=== PATIENT | female | born 1955 | race Caucasian/White ===

== ENCOUNTER 2019-09-09 09:10 | Inpatient (IN) ==
[2019-09-09] MEDS ORDERED: DiphenhydrAMINE HCL 50 MG/ML VIAL IV STA (09:46)
[2019-09-09] MEDS ORDERED: ONDANSETRON INJ 2 MG/ML 2 ML VIAL IV STA (09:46)
[2019-09-09] MEDS ORDERED: SODIUM CHLORIDE 0.9% 1000ML 1,000 ML IV SCH (10:00)
--- NOTE | 2019-09-09 10:16 | XRay Report ---
XR chest 1V portable CLINICAL HISTORY: weakness COMPARISON STUDY: No previous studies for comparison. FINDINGS: The cardiac and mediastinal contours are normal. There is no evidence of focal pulmonary co nsolidation. There is no evidence of failure. No pleural effusions are visualized.[Incidental note is made of a peritendinous calcifications in the left shoulder region, likely secondary to calcific ten dinopathy IMPRESSION: No active disease in the chest. ACT 112: Negative or not required by law. Electronically signed by: Matthew Garcia M.D. 09/09/2019 10:14 AM
[2019-09-09 10:23] LABS: Basophils # (auto) 0.04 K/uL (0-0.2); Basophils % (auto) 0.4 %; Eosinophils # (auto) 0.44 K/uL (0-0.5); Eosinophils % (auto) 4.7 %; Hematocrit (blood only) 41.7 % (37-47); Hemoglobin 14.6 g/dL (12.0-16.0); Immature Granulocytes # (auto) 0.02 K/uL (0.00-0.02); Immature Granulocytes % (auto) 0.2 %; Lymphocytes # (auto) 1.97 K/uL (1.2-3.4); Lymphocytes % (auto) 20.8 %; Mean Corpuscular Volume 88.5 fL (80-100); Mean Platelet Volume 10.6 fL (7.4-10.4); Monocytes # (auto) 0.46 K/uL (0.11-0.59); Monocytes % (auto) 4.9 %; Neutrophils # (auto) 6.53 K/uL (1.4-6.5); Platelet Count 292 K/uL (130-400); RDW Coefficient of Variation 13.1 % (11.5-14.5); RDW Standard Deviation 42.9 fL (36.4-46.3); Red Blood Count 4.71 M/uL (4.2-5.4); White Blood Count 9.46 K/uL (4.8-10.8)
[2019-09-09 10:41] LABS: Alanine Aminotransferase 23 U/L (12-78); Albumin Level 3.7 gm/dl (3.4-5.0); Aspartate Aminotransferase 13 U/L (15-37); BUN Creatinine Ratio 17.8 (10-20); Blood Urea Nitrogen 15 mg/dl (7-18); Calcium 9.1 mg/dl (8.5-10.1); Carbon Dioxide 29 mmol/L (21-32); Chloride 107 mmol/L (98-107); Creatinine Clr Calc Pharmacy 57.7 ml/min; Est GFR (African American) 84.5; Est GFR (Non-African American) 72.9; Glucose 131 mg/dl (70-99); Magnesium 1.8 mg/dl (1.8-2.4); Potassium 3.9 mmol/L (3.5-5.1); Sodium 139 mmol/L (136-145)
[2019-09-09 10:52] LABS: Alkaline Phosphatase 36 U/L (45-117); Bilirubin,Total 0.3 mg/dl (0.2-1); Globulin 3.7 gm/dl (2.5-4.0); Total Protein 7.4 gm/dl (6.4-8.2); Troponin I < 0.015 ng/ml (0-0.045)
[2019-09-09] MEDS ORDERED: GADOBUTROL 65ML VIAL IV PRN (11:39)
--- NOTE | 2019-09-09 11:54 | Magnetic Resonance Report ---
MRI OF THE BRAIN WITHOUT AND WITH IV CONTRAST CLINICAL HISTORY: Possible ms flare, dizzy, weak, off balance COMPARISON STUDY: No previous studies for comparison. TECHNIQUE: MRI of the brain was performed from the vertex to the skull base utilizing various T1 and T2 weighted sequences. Following the IV administration of 6.5 mL of Gadavist contrast, additional enh anced images were obtained. FINDINGS: Sagittal T1, axial diffusion, proton density and T2 weighted axial, coronal FLAIR, and pre and post a xial T1-weighted images were acquired. These were supplemented with post gadolinium coronal T1 weight ed images. No intra or extra-axial mass lesions are visualized. Axial diffusion-weighted images reveal no evidence of acute or subacute infarction. There is no evidence of ventricular dilatation. Proton density T2-weighted and FLAIR images reveal multiple foci of abnormal increased T2 signal with in the white matter. A few small periventricular lacunar infarcts are also visualized. There is also a pontine lacunar infarct. Diagnostic considerations include small vessel ischemic disease versus a d emyelinating process. There are no abnormal flow voids. There is no evidence of pathologic enhancement. IMPRESSION: 1. No evidence of intracranial mass 2. No evidence of acute or subacute infarction 3. Scattered lacunar infarcts 4. Moderate foci of increased T2 signal within the white matter. Diagnostic considerations include sm all vessel ischemic disease versus a demyelinating process 5. No evidence of pathologic enhancement to indicate an active plaque. ACT 112: Negative or not required by law. Electronically signed by: Matthew Garcia M.D. 09/09/2019 11:53 AM
--- NOTE | 2019-09-09 13:07 | Electrocardiogram Report ---
Test Reason : Blood Pressure : / mmHG Vent. Rate : 067 BPM Atrial Rate : 067 BPM P-R Int : 162 ms QRS Dur : 082 ms QT Int : 442 ms P-R-T Axes : 073 053 049 degrees QTc Int : 467 ms Normal sinus rhythm Low voltage QRS Poor R wave progression, consider anterior NV vs. lead placement vs. LVH Borderline ECG No previous ECGs available Confirmed by Ulises Cuellar ([id number]) on 09/09/2019 1:06:27 PM Referred By: REFERRED SELF Confirmed By:Andrea Cuellar
[2019-09-09 13:10] LABS: Appearance Urine Clear (Clear); Bacteria Urine Automated 1+ (Negative); Bilirubin Urine Negative (Negative); Blood Urine Trace (Negative); Color Urine Yellow; Epithelial Cell Urine Auto >30 /lpf (0-5); Glucose Urine UA Negative (Negative); Ketones Urine Negative (Negative); Leukocyte Esterase Urine Negative (Negative); Nitrite Urine Negative (Negative); Protein Urine Negative (Negative); RBC Urine Automated 0-4 /hpf (0-4); Specific Gravity Urine 1.011 (1.000-1.030); Urobilinogen Urine Negative (Negative)
[2019-09-09] MEDS ORDERED: OPTIRAY 320 125ml IV PRN (15:14)
--- NOTE | 2019-09-09 15:22 | History & Physical Report ---
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 Diagnostic considerations include small vessel ischemic disease versus a demyelinating process -ED provider discussed case with neurology (Dr. Ioana Rashid) who recommends admission for further work-up including head and neck CTA and echo -? Due to vertigo -Continue home aspirin 81 mg for now, further antiplatelet regimen as per neurology if indicated -Lipid panel and Hgb A1c with morning labs -Neurochecks -PT/OT eval's (2) HTN (hypertension): -No indication for permissive hypertension given no acute infarction noted on MRI -Continue home dose of valsartan/HCTZ (3) Hypercholesteremia: -Continue statin (4) GERD (gastroesophageal reflux disease): -Continue PPI (5) DVT prophylaxis: -SQ Lovenox History of Present Illness Chief Complaint: Dizziness Primary Care Provider: LEYDI Douglas 63 year old female who presents to the ED with dizziness. Patient reports she woke up this morning to let her dog out and when she got out of bed, she had a feeling of lightheadedness and dizziness. She reports that when she walking she was leaning to left. She then went back to bed and when she woke up, the dizziness and lightheadedness was much worse. She had associated vomiting and diarrhea. She also felt very flushed. Reports symptoms were worse when she turned her head. She denies hematemesis and coffee-ground emesis. No prior bleeding per rectum or dark tarry stools. Symptoms lasted for about 1 hour and then resolved on their own. Patient then presented to the ED for further evaluation. She denies unilateral weakness, numbness, tingling. No facial droop, slurred speech, difficulty speaking or understanding. Denies headache and blurred vision. Has some associated shortness of breath but denies any chest pain. No syncopal event. Denies abdominal pain. No other recent illness, fevers, chills. Denies any urinary symptoms. In the ED, brain MRI was obtained showing No evidence of acute or subacute infarction, Scattered lacunar infarcts, and Moderate foci of increased T2 signal within the white matter. Diagnostic considerations include small vessel ischemic disease versus a demyelinating process. Labs are unremarkable. Patient has remained hemodynamically stable. ED provider consulted with neurology who recommended admission for further work-up. Allergies Allergy/AdvReac Type Severity Reaction Status Date / Time No Known Allergies Allergy Unverified 09/09/19 11:38 Home Medications Home Medications Medication Instructions Recorded Confirmed Type aspirin 81 mg PO HS 09/09/19 09/09/19 History cholecalciferol (vitamin D3) 1,000 unit PO QAM 09/09/19 09/09/19 History [Vitamin D3] conjugated estrogens [Premarin] 1.25 mg PO QAM 09/09/19 09/09/19 History cyanocobalamin (vitamin B-12) 1,000 mcg PO QAM 09/09/19 09/09/19 History [Vitamin B-12] fenofibrate nanocrystallized 145 mg PO QAM 09/09/19 09/09/19 History hyoscyamine sulfate [Levbid] 0.375 mg PO QAM 09/09/19 09/09/19 History omeprazole 40 mg PO QAM 09/09/19 09/09/19 History simvastatin 40 mg PO HS 09/09/19 09/09/19 History valsartan-hydrochlorothiazide 1 tab PO QAM 09/09/19 09/09/19 History Past Med/Surg History Medical History GERD (gastroesophageal reflux disease) HTN (hypertension) Hypercholesteremia Surgical History H/O lumpectomy History of hysterectomy Hx of cholecystectomy Family History Mother Cerebral aneurysm Stroke Social History Preferred Language: [place] Communication Ability: Effective 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 Beliefs That Will Affect Care: None marital status: Current Living Situation: Alone current occupational status: retired Other Information That Helps Us Care for You: No Feels Safe at Home: Yes Safety Concerns: Feels Safe At This Time Smoking Status: Current every day smoker Tobacco Type: cigarettes ; Cigarettes Per Day: 10 ; Do You Dip or Chew Tobacco: No ; Second Hand Exposure: No ; Tobacco Cessation Education Requested by Patient: No Hx Alcohol Use: Yes Alcohol type: beer and wine Hx Substance Use: No Review of Systems Review of Systems: ROS per HPI, all other systems reviewed and negative Physical Exam Constitutional: WD/WN, vitals as above Eyes: PERRL, conjunctivae normal, anicteric sclerae ENMT: external ear and nose normal, oropharynx normal Respiratory: normal respiratory effort, lungs clear to auscultation Cardiovascular: Rate/Rhythm: regular rate and regular rhythm Vessels: normal peripheral pulses Extremities: no edema Gastrointestinal (Abdomen): normal bowel sounds, soft, nontender, no hepatosplenomegaly Musculoskeletal: no cyanosis or clubbing, extremities motor strength 5/5 Skin: no rashes, warm and dry Neurologic: PERRL, EOMI, accommodation nl, no face palsy, no dysarthria moves all extremities and awake; no focal motor deficits Motor/Sensory: no pronator drift Cranial Nerves: tongue midline Coordination: normal [id number] test and normal nglq-bv-cucc test Psychiatric: A+Ox3, euthymic affect Results & Data Vital Signs (Past 12 Hours) Vital Signs Temp Pulse Pulse Resp BP BP Pulse Ox 09/09/19 14:44 78 17 125/69 97 09/09/19 13:52 69 18 123/70 96 09/09/19 13:27 88 17 129/65 96 09/09/19 11:50 78 16 136/83 96 09/09/19 09:19 36.4 C L 70 16 128/79 98 Laboratory Results Short CBC 09/09/19 Range/Units 10:00 WBC 9.46 (4.8-10.8) K/uL Hgb 14.6 (12.0-16.0) g/dL Hct 41.7 (37-47) % Plt Count 292 (130-400) K/uL BMP 09/09/19 10:00 Sodium 139 Potassium 3.9 Chloride 107 Carbon Dioxide 29 BUN 15 Creatinine 0.84 Glucose 131 H Calcium 9.1 Cardiac Enzymes 09/09/19 Range/Units 10:00 Troponin I < 0.015 (0-0.045) ng/ml Liver Function 09/09/19 Range/Units 10:00 Total Bilirubin 0.3 (0.2-1) mg/dl AST 13 L (15-37) U/L ALT 23 (12-78) U/L Alkaline Phosphatase 36 L (45-117) U/L Albumin 3.7 (3.4-5.0) gm/dl Urine 09/09/19 Range/Units 12:25 Urine Color Yellow Urine Appearance Clear (Clear) Urine pH 7.0 (4.5-7.5) Ur Specific [place] 1.011 (1.000-1.030) Urine Protein Negative (Negative) Urine Glucose (UA) Negative (Negative) Diagnostic Findings BRAIN MRI IMPRESSION: 1. No evidence of intracranial mass 2. No evidence of acute or subacute infarction 3. Scattered lacunar infarcts 4. Moderate foci of increased T2 signal within the white matter. Diagnostic considerations include small vessel ischemic disease versus a demyelinating process 5. No evidence of pathologic enhancement to indicate an active plaque. CXR IMPRESSION: No active disease in the chest. Code Status & VTE Plan VTE Prophylaxis Plan VTE Prophylaxis will be ordered: Yes Supervising Physician Co-Signing Physician Notes Attending addendum: The patient was seen and examined in the telemetry unit She was admitted with possible strokelike symptoms including leaning to the left while ambulating associated with profound dizziness She has had an attack of TIA about 10 years ago and she was told that she might have dormant MS Condition completely resolved during my examination She did not have any visual symptoms, any dysarthria or problem with swallowing, any numbness and/or tingling involving any of the extremities On examination Hemodynamically stable Chest-clear to auscultate bilaterally Heart-S1-S2, no murmur Abdomen-soft, nontender, no organomegaly, bowel sound present Extremities-negative for any edema TAX REPRESENTATIVE-alert, awake and oriented x3. No focal sensory and motor deficit appreciated Admission labs, EKG and imaging studies reviewed MRI showed old tiny infarcts and possible diminishing disease Multiple sclerosis has to be ruled out Neurology consulted Agree with assessment and plan as outlined above by Marisol Eason
[2019-09-09] MEDS ORDERED: PHARMACIST DISCHARGE MED REC CONSULT PRN (15:43)
[2019-09-09] MEDS ORDERED: ACETAMINOPHEN 325 MG TAB PO PRN (15:43)
--- NOTE | 2019-09-09 15:44 | CT Scan Report ---
CT ANGIOGRAM OF THE BRAIN; CT ANGIOGRAM OF THE NECK CLINICAL HISTORY: Strokelike symptoms. Dizziness. Nausea and vomiting. COMPARISON STUDY: MRI of the brain dated 09/09/2019. TECHNIQUE: Following the IV administration of 119 of Optiray 320, CT angiogram of the head and neck w as performed from the aortic arch to the vertex. Images are reviewed in the axial, sagittal, and isabel nal planes. 3-D MIPS images are created and assessed. IV contrast was administered without complicati on. All measurements were calculated based on NASCET criteria. A dose lowering technique was utilize d adhering to the principles of ALARA. The examination is modestly degraded by motion artifact. CT DOSE: 846.38 mGycm FINDINGS: Brain parenchyma: The brain parenchyma is normal in appearance. There is no hemorrhage, mass effect, or evidence of acute territorial ischemia by CT criteria. There is no evidence of enhancing mass lesi on on the angiogram phase images. The ventricles, sulci, and cisterns are normal in configuration. Gr ay-white matter differentiation is preserved. No extra-axial fluid collection is seen. Thoracic aorta: There is mild atherosclerotic calcification of the thoracic aorta. Visualized portion s of the thoracic aorta are normal in caliber. The aortic arch demonstrates standard 3-vessel anatomy . Right carotid arterial system: The right common carotid artery is widely patent, as are the right int ernal and external carotid arteries. Left carotid arterial system: The left common carotid artery is widely patent, as are the left industrial engineering intern al and external carotid arteries. Calcified plaque is noted in the carotid bulb. Vertebral arteries: The vertebral arteries are widely patent and codominant. Subclavian arteries: Widely patent bilaterally. Intracranial vasculature: There is calcification of the cavernous carotid arteries. The internal muniz tid arteries are patent at the skull base, as are the anterior and middle cerebral arteries bilateral ly. The vertebrobasilar system and posterior cerebral arteries are widely patent. The vertebral arter ies are codominant. There is no aneurysm, high-grade stenosis, or focal vessel cut off seen throughou t the intracranial circulation. Jugular veins: Patent bilaterally. Dural sinuses: Patent. Lung apices: Hematemesis change is noted. Partially visualized upper lobe lung parenchyma is otherwis e clear. Soft tissues: The visualized pharyngeal soft tissues are normal in appearance noting angiographic pha se technique. The oropharyngeal airway appears widely patent. The salivary and thyroid glands are nor mal in appearance. No cervical lymphadenopathy is seen. Skeletal structures: The skeletal structures are osteopenic. The calvarium appears intact. The cervic al spine is maintained noting mild spondylosis. No lytic or blastic lesion is seen. Orbits: The bony orbits are intact. Orbital contents are normal in appearance. Sinuses and mastoids: There is mild mucosal thickening within the ethmoid sinuses. Secretions are not ed in the right sphenoid sinus. The remaining paranasal sinuses are clear. The mastoid air cells are well pneumatized. IMPRESSION: 1. There is no hemorrhage, mass effect, or evidence of acute territorial ischemia by CT criteria noti ng angiographic phase technique. 2. Unremarkable CT angiogram of the brain. 3. Unremarkable CT angiogram of the neck. 4. Emphysema. ACT 112: Negative or not required by law. Electronically signed by: Ronen Bobby M.D. 09/09/2019 3:42 PM
[2019-09-09] MEDS ORDERED: ENOXAPARIN INJ 40 MG/0.4 ML SYR SQ SCH (18:00)
--- NOTE | 2019-09-09 18:05 | Emergency Department Note ---
Entered by Giovana Arndt acting as a scribe for History of Present Illness General Chief complaint: Vomiting Stated complaint: DIZZY,SWEATS,SICK,VOMITING Time Seen by Provider: 09/09/19 09:27 Source: patient History of Present Illness Onset (ago): hour(s) 2 Location: abdomen Pain Consistency: + other (episode) Maximum Pain Intensity: 0 Quality: + other (vomiting) Associated symptoms: + denies other symptoms (hematochezia, hematemesis), + zachariah sea/vomiting and + other (dizzy, diarrhea, burning hot) The patient is a 63 year old female who presents to the Emergency Room with complaints of an episode of vomiting starting 2 hours ago. The patient states that she got up this morning to let the dogs out 2 hours ago. She states that she noticed that she was dizzy and felt like she was leaning to the left. She reports that she had to hold onto the smith to prevent herself from falling over. She states that she tried to go back to bed after letting them out, but once she got to the bedroom, she had a burning hot feeling come over her. She states that she couldnt catch her breath and then she vomited. She reports that about the same time she felt like she had to move her bowels, but she couldnt get to the bathroom. She states that she called her friend to help her and once she got there, she had an episode of diarrhea. She notes that she vomited one more time and had diarrhea one more time. The patient states that she now feels that it is over, but is still a little dizzy. The patient notes that this happened once before, but not this bad. She reports that at that time they did a full work up and diagnosed her with dormant MS. She notes that she was told though, she doesnt need anything for her MS. The patient denies currently having nausea, hematochezia, hematemesis, eating anything unusual, and being around anyone who has been sick. Home Medications Home Medications Medication Instructions Recorded Confirmed Type aspirin 81 mg PO HS 09/09/19 09/09/19 History cholecalciferol (vitamin D3) 1,000 unit PO QAM 09/09/19 09/09/19 History [Vitamin D3] conjugated estrogens [Premarin] 1.25 mg PO QAM 09/09/19 09/09/19 History cyanocobalamin (vitamin B-12) 1,000 mcg PO QAM 09/09/19 09/09/19 History [Vitamin B-12] fenofibrate nanocrystallized 145 mg PO QAM 09/09/19 09/09/19 History hyoscyamine sulfate [Levbid] 0.375 mg PO QAM 09/09/19 09/09/19 History omeprazole 40 mg PO QAM 09/09/19 09/09/19 History simvastatin 40 mg PO HS 09/09/19 09/09/19 History valsartan-hydrochlorothiazide 1 tab PO QAM 09/09/19 09/09/19 History Allergies Allergy/AdvReac Type Severity Reaction Status Date / Time No Known Allergies Allergy Unverified 09/09/19 11:38 Past Med/Surg History Medical History GERD (gastroesophageal reflux disease) HTN (hypertension) Hypercholesteremia Surgical History H/O lumpectomy History of hysterectomy Hx of cholecystectomy Family History Mother Cerebral aneurysm Stroke Social History Preferred Language: Pashto Communication Ability: Effective 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 and A total of 10 systems reviewed and were otherwise negative Physical Exam Vital Signs Vital Signs - 24 hr 09/09/19 09:19 09/09/19 11:50 09/09/19 13:27 Temperature 36.4 C L Temperature Source Oral Pulse Rate 70 Pulse Rate [Finger] 78 88 Pulse Rhythm [Finger] Regular Regular Respiratory Rate 16 16 17 Respiratory Effort / Characteristics Spontaneous Non-Labored Spontaneous Respiratory Depth Normal Respiratory Pattern Regular Regular Blood Pressure 128/79 Blood Pressure [Left Arm] 136/83 129/65 Blood Pressure Mean 95 Blood Pressure Mean [Left Arm] 100 86 Pulse Oximetry 98 96 96 Oxygen Delivery Method Room Air Room Air Room Air Sepsis Recent Fever Within 48 Hours No Sepsis New/Unexplained Change in Mental Status No Sepsis Action Taken by Nursing No Action Required 09/09/19 13:52 Temperature Temperature Source Pulse Rate Pulse Rate [Finger] 69 Pulse Rhythm [Finger] Regular Respiratory Rate 18 Respiratory Effort / Characteristics Non-Labored Spontaneous Respiratory Depth Normal Respiratory Pattern Regular Blood Pressure Blood Pressure [Left Arm] 123/70 Blood Pressure Mean Blood Pressure Mean [Left Arm] 87 Pulse Oximetry 96 Oxygen Delivery Method Room Air Sepsis Recent Fever Within 48 Hours Sepsis New/Unexplained Change in Mental Status Sepsis Action Taken by Nursing GENERAL: Patient is in no acute distress. HEENT: No acute trauma, normocephalic atraumatic, mucous membranes moist, no nasal congestion, no scleral icterus. Pupils are equal and reactive to light. No nystagmus. NECK: No stridor, no adenopathy, no meningismus, trachea is midline. LUNGS: Clear to auscultation bilaterally, no wheeze, no rhonchi, breath sounds equal. HEART: Without murmurs gallops or rubs, regular rate and rhythm. ABDOMEN: Soft, nontender, bowel sounds positive, no hernias, no peritonitis. EXTREMITIES: No cyanosis or edema, full range of motion of all the joints without pain or difficulty, no signs for acute trauma. NEUROLOGIC: Oriented x 3, no acute motor or sensory deficits, no focal weakness. No cerebellar deficits. No extremity drift. No speech slur. Normal gait. SKIN: No rash, no jaundice, no diaphoresis. Course Course 0939: The patient was evaluated in room A11B. A complete history and physical exam was performed. 1328: I discussed the patient's case with Dr. Rashid- Kirstin. She feels that the patient would benefit from a stroke work up in the hospital. 1340: I reevaluated the patient and updated her on her test results at this time. I discussed the treatment plan with her. She verbally agrees and understands. 1352: I discussed the patient's case with LEYDI Capone- [facility]. She will evaluate the patient for further management under Dr. Eason's service. Administered Medications Enoxaparin Sodium (Lovenox) 40 mg SQ Q24H SANTO Stop: 10/09/19 17:59 Last Admin: 09/09/19 17:11 Dose: 40 mg Documented by: [id number] Ioversol (Optiray 320 125ml) 119 ml IV ONCE PRN PRN Reason: Interaction Checking Stop: 09/13/19 15:13 Last Admin: 09/09/19 15:15 Dose: 119 ml Documented by: [id number] Discontinued Medications Diphenhydramine HCl (Benadryl) 12.5 mg IV NOW STA Stop: 09/09/19 09:47 Last Admin: 09/09/19 10:05 Dose: 12.5 mg Documented by: [id number] Gadobutrol (Gadavist 65ml) 6.5 ml IV ONCE PRN PRN Reason: Interaction Checking Stop: 09/13/19 11:38 Last Admin: 09/09/19 11:40 Dose: 6.5 ml Documented by: [id number] Sodium Chloride (Nss 1000ml) 1,000 mls @ 999 mls/hr IV .Q1H1M SANTO Stop: 09/09/19 11:00 Last Infusion: 09/09/19 12:04 Dose: 0 mls/hr Documented by: [id number] Admin: 09/09/19 10:05 Dose: 999 mls/hr Documented by: [id number] Ondansetron HCl (Zofran) 4 mg IV NOW STA Stop: 09/09/19 09:47 Last Admin: 09/09/19 10:05 Dose: 4 mg Documented by: [id number] Medical Decision Making Differential Diagnosis Differential diagnoses include viral illness, dehydration, electrolyte imbalance, anemia, stroke, TIA, dysrhythmia, AL, MS. Medical Records Attestation: I reviewed the patient's medical records. Home Medications Current Medication List: was personally reviewed by me Laboratory Data Attestation: I reviewed the patient's lab results. Result diagrams: 09/09/19 10:00 09/09/19 10:00 Lab Results 09/09/19 09/09/19 09/09/19 Range/Units 10:00 10:00 12:25 WBC 9.46 (4.8-10.8) K/uL RBC 4.71 (4.2-5.4) M/uL Hgb 14.6 (12.0-16.0) g/dL Hct 41.7 (37-47) % MCV 88.5 (80-100) fL MCH 31.0 (25-34) pg MCHC 35.0 (32-36) g/dL RDW Std Deviation 42.9 (36.4-46.3) fL RDW Coeff of Leanna 13.1 (11.5-14.5) % Plt Count 292 (130-400) K/uL MPV 10.6 H (7.4-10.4) fL Immature Gran % (Auto) 0.2 % Neut % (Auto) 69.0 % Lymph % (Auto) 20.8 % Kemper % (Auto) 4.9 % Eos % (Auto) 4.7 % Baso % (Auto) 0.4 % Immature Gran # (Auto) 0.02 (0.00-0.02) K/uL Neut # (Auto) 6.53 H (1.4-6.5) K/uL Lymph # (Auto) 1.97 (1.2-3.4) K/uL Kemper # (Auto) 0.46 (0.11-0.59) K/uL Eos # (Auto) 0.44 (0-0.5) K/uL Baso # (Auto) 0.04 (0-0.2) K/uL Sodium 139 (136-145) mmol/L Potassium 3.9 (3.5-5.1) mmol/L Chloride 107 (98-107) mmol/L Carbon Dioxide 29 (21-32) mmol/L Anion Gap 3.0 (3-11) BUN 15 (7-18) mg/dl Creatinine 0.84 (0.6-1.2) mg/dl Est Cr Clr Drug Dosing 57.7 ml/min Est GFR ( Amer) 84.5 Est GFR (Non-Af Amer) 72.9 BUN/Creatinine Ratio 17.8 (10-20) Glucose 131 H (70-99) mg/dl Calcium 9.1 (8.5-10.1) mg/dl Magnesium 1.8 (1.8-2.4) mg/dl Total Bilirubin 0.3 (0.2-1) mg/dl AST 13 L (15-37) U/L ALT 23 (12-78) U/L Alkaline Phosphatase 36 L (45-117) U/L Troponin I < 0.015 (0-0.045) ng/ml Total Protein 7.4 (6.4-8.2) gm/dl Albumin 3.7 (3.4-5.0) gm/dl Globulin 3.7 (2.5-4.0) gm/dl Albumin/Globulin Ratio 1.0 (0.9-2) TSH 1.600 (0.300-4.500) uIu/ml Urine Color Yellow Urine Appearance Clear (Clear) Urine pH 7.0 (4.5-7.5) Ur Specific Melissa 1.011 (1.000-1.030) Urine Protein Negative (Negative) Urine Glucose (UA) Negative (Negative) Urine Ketones Negative (Negative) Urine Blood Trace H (Negative) Urine Nitrite Negative (Negative) Urine Bilirubin Negative (Negative) Urine Urobilinogen Negative (Negative) Ur Leukocyte Esterase Negative (Negative) Urine WBC (Auto) 1-5 (0-5) /hpf Urine RBC (Auto) 0-4 (0-4) /hpf U Hyaline Cast (Auto) 1-5 (0-5) /lpf U Epithel Cells (Auto) >30 H (0-5) /lpf Urine Bacteria (Auto) 1+ H (Negative) Imaging Data Radiologist's Impression: Radiology results as stated below per my review and the radiologist's interpretation: XR chest 1V portable CLINICAL HISTORY: weakness COMPARISON STUDY: No previous studies for comparison. FINDINGS: The cardiac and mediastinal contours are normal. There is no evidence of focal pulmonary consolidation. There is no evidence of failure. No pleural effusions are visualized.[Incidental note is made of a peritendinous calcifications in the left shoulder region, likely secondary to calcific tendinopathy IMPRESSION: No active disease in the chest. ACT 112: Negative or not required by law. Electronically signed by: Matthew Garcia M.D. 09/09/2019 10:14 AM MRI OF THE BRAIN WITHOUT AND WITH IV CONTRAST CLINICAL HISTORY: Possible ms flare, dizzy, weak, off balance COMPARISON STUDY: No previous studies for comparison. TECHNIQUE: MRI of the brain was performed from the vertex to the skull base utilizing various T1 and T2 weighted sequences. Following the IV administration of 6.5 mL of Gadavist contrast, additional enhanced images were obtained. FINDINGS: Sagittal T1, axial diffusion, proton density and T2 weighted axial, coronal FLAIR, and pre and post axial T1-weighted images were acquired. These were supplemented with post gadolinium coronal T1 weighted images. No intra or extra-axial mass lesions are visualized. Axial diffusion-weighted images reveal no evidence of acute or subacute infar ction. There is no evidence of ventricular dilatation. Proton density T2-weighted and FLAIR images reveal multiple foci of abnormal increased T2 signal within the white matter. A few small periventricular lacunar infarcts are also visualized. There is also a pontine lacunar infarct. Diagnostic considerations include small vessel ischemic disease versus a demyelinating process. There are no abnormal flow voids. There is no evidence of pathologic enhancement. IMPRESSION: 1. No evidence of intracranial mass 2. No evidence of acute or subacute infarction 3. Scattered lacunar infarcts 4. Moderate foci of increased T2 signal within the white matter. Diagnostic considerations include small vessel ischemic disease versus a demyelinating process 5. No evidence of pathologic enhancement to indicate an active plaque. ACT 112: Negative or not required by law. Electronically signed by: Matthew Garcia M.D. 09/09/2019 11:53 AM ECG Data Attestation: I personally reviewed and interpreted this ECG as follows: Indication: + vomiting and + other (dizziness) Rate (beats per minute): 67 Rhythm: + normal sinus ECG ST segments: no ST elevation ECG Findings: + Other (QT-c 467); no PVCs Blood Pressure Blood Pressure Findings: Elevated blood pressure Blood Pressure Disposition: Referred to patients primary care provider MDM Narrative There is no leukocytosis or concerning anemia. No significant electrolyte abnormality or kidney failure. No worrisome liver enzyme elevation. The patient appeared to be in a euthyroid state. Urinalysis did not show any karin dence for infection. EKG showed a sinus rhythm, no acute ischemia. Cardiac enzyme testing x1 is not consistent with acute cardiac injury. Chest x-ray did not show pneumonia or CHF. Brain MRI showed some older strokes, no acute stroke, some potential MS lesions were seen. On exam, there were no focal neurologic deficits. The patient did feel slightly off balance with change of position but otherwise had a normal gait. I discussed the case with neurology. Patient is in need of a thorough stroke work-up. Hospitalization for this work-up was felt warranted. I did speak to the patient about our findings, she was somewhat reassured by the no acute findings on MRI. The patient is agreeable to hospitalization. I did speak with the manager rn case. The on-call hospitalist was consulted. I am concerned about stroke or TIA as a cause for her presentation. Continuous Cardiac Monitoring: An order was placed for continuous cardiac monitoring. The monitor shows a rate of 70 with normal sinus rhythm. Impression & Plan Stroke-like symptoms, Weakness, Abnormal brain MRI, Vomiting and diarrhea Discharge Plan Visit Data *Final* Discharge Date/Time: 09/09/19 14:44 Chief Complaint: Vomiting Stated Complaint: DIZZY,SWEATS,SICK,VOMITING ED Provider: Ronen Mathews Discharge Problem: Stroke-like symptoms, Weakness, Abnormal brain MRI, Vomiting and diarrhea Patient Disposition: Admitted As Inpatient Discharge Instructions Interventions: ED Discharge Assessment Last Done: 09/09/19 14:44 The bella's documentation has been prepared under my direction and personally r eviewed by me in its entirety. I confirm that the note above accurately reflects all work, treatment, procedures, and medical decision making performed by me.
[2019-09-09] MEDS ORDERED: ASPIRIN 81 MG ECTAB PO SCH (21:00)
[2019-09-09] MEDS ORDERED: SIMVASTATIN 40 MG TAB PO SCH (21:00)
[2019-09-10 06:53] LABS: Estimated Average Glucose 143 mg/dl; Hemoglobin A1C 6.6 % (4.5-5.6)
[2019-09-10 07:30] LABS: Basophils # (auto) 0.04 K/uL (0-0.2); Basophils % (auto) 0.5 %; Eosinophils # (auto) 0.47 K/uL (0-0.5); Eosinophils % (auto) 5.8 %; Hematocrit (blood only) 40.3 % (37-47); Hemoglobin 13.7 g/dL (12.0-16.0); Immature Granulocytes # (auto) 0.01 K/uL (0.00-0.02); Immature Granulocytes % (auto) 0.1 %; Lymphocytes # (auto) 3.34 K/uL (1.2-3.4); Lymphocytes % (auto) 41.2 %; Mean Corpuscular Hemoglobin 30.2 pg (25-34); Mean Platelet Volume 10.3 fL (7.4-10.4); Monocytes # (auto) 0.42 K/uL (0.11-0.59); Monocytes % (auto) 5.2 %; Neutrophils # (auto) 3.83 K/uL (1.4-6.5); Neutrophils % (auto) 47.2 %; Platelet Count 308 K/uL (130-400); RDW Coefficient of Variation 13.1 % (11.5-14.5); RDW Standard Deviation 42.6 fL (36.4-46.3); Red Blood Count 4.53 M/uL (4.2-5.4); White Blood Count 8.11 K/uL (4.8-10.8)
[2019-09-10 08:00] LABS: BUN Creatinine Ratio 14.6 (10-20); Calcium 8.8 mg/dl (8.5-10.1); Creatinine Clr Calc Pharmacy 51.5 ml/min; Est GFR (African American) 73.8; Est GFR (Non-African American) 63.7; Potassium 3.6 mmol/L (3.5-5.1)
--- NOTE | 2019-09-10 08:37 | Neurology Consultation ---
Date of Consultation September 10, 2019 Assessment & Plan (1) Dizziness: Adilia Elizondo is a 63 yo woman w/ PMH of HTN, HLD and GERD who p/t [facility] on 09/09/19 after acute onset of dizziness a/w nausea/vomiting/diarrhea, found to have no acute infarct but either moderate confluent SVID vs prior MS. # Abnormal MRI brain: Cannot rule out MS just from the MRI that she does not have any lesion that is currently contrast-enhancing that could explain her symptoms. There is no criteria for dissemination in space and time at this time. Suspect that her MRI is more related to stroke risk factors - please obtain LP with the following studies; she will need a PT/INR prior to this: opening pressure, glucose, protein, cell counts, MS panel, VRDL, EBV/CMV viral PCRs, cytology - please obtain the following serum studies: vitamin D 25OH, NMO antibody titer, Lyme screen, MITUL, NELI screen, ANCA screen, SSA/SSB, ESR/CRP, RPR, B12, copper, quantiferon, lupus anticoagulant panel -Also discussed with her that there is a slightly increased risk of stroke on women who take oral estrogen supplementation for postmenopausal symptoms. She has any additional stroke risk factors of tobacco abuse, hypertension, hyperlipidemia and diabetes. 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 - she will need follow up in the neurology clinic in 4-6 weeks to discuss results of testing # Dizziness: in the setting of GI upset (nausea, vomiting, diarrhea). After hearing her description of the events, suspect that she either had hypoglycemic event versus presyncopal event. -No further work-up needed for this. Denies any current symptoms # Diabetes: New diagnosis this admission. Discussed briefly with her family member present in room that she should work with PCP for diet/exercise versus considering metformin or other anti-hyperglycemic regimen. # Possible TIA: - Complete ischemic stroke workup with TTE without bubble - Consult speech, PT, OT for supportive management - Will chief counsel concerning stroke education, smoking cessation, healthy diet, physical activity, weight loss - Follow up with PCP for assistance with outpatient goals (BP <135/85, LDL <70, A1c <7) - Follow up in neurology clinic in 6-8 weeks Secondary Stroke Prevention: - Antiplatelet: Change to Plavix 75 mg daily (300 mg load first) - Anticoagulation: Not indicated at this time - Statin: Change to atorvastatin 40mg daily Thank you for this interesting consult. Plan discussed with primary team. Please text or call with questions. (2) Diabetes: (3) HTN (hypertension): (4) Hypercholesteremia: History of Present Illness Attending Physician: Evan Avitia MD History of Present Illness Adilia Elizondo is a 63 yo woman w/ PMH of HTN, HLD and GERD who p/t [facility] on 09/09/19 after acute onset of dizziness a/w nausea/vomiting/diarrhea. 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 She has not ever been on a DMT previously. Unclear if she was also worked up for TIA/stroke at that time, but she does take aspirin 81mg daily and a statin. In the ED, BP 128/79, respiratory rate 16, heart rate 70, satting 98% on room air. Labs notable for WBC 9.46, hemoglobin 14.6, platelets 292, creatinine 0.4, glucose 131, TSH within normal, troponin negative, calcium magnesium within normal, UA showed 1+ bacteria positive WBCs but negative leukoesterase and nitrates. Further lab work revealed A1c 6.6 (new diagnosis of diabetes) and LDL 61. Independent review of MRI brain with and without contrast shows no acute infarct, no contrast- enhancing lesions, chronic infarcts are noted in left median charles, left basal ganglia, left external capsule right periventricular white matter with multiple foci of T2 hyperintensities in the subcortical and periventricular white matter, some perpendicular to the corpus callosum. CTA head and neck shows no LVO, high-grade stenosis or aneurysm. On examination today, she reports that she had a TIA or stroke approximately 10 years ago when she had left facial droop, dysarthria and left upper and left lower extremity numbness and weakness. She reports that she had MRI, echo and full stroke work-up at that time down in [place] and was discharged to a rehab with full resolution of all stroke symptoms. She also details that approximately 4 years ago, she had a similar event to the one that happened yesterday with the dizziness and nausea, however it was not as severe in intensity. She had a work-up at [facility] at that time and was told that she had possible dormant MS although she reports that she did not have any a lumbar puncture performed during that admission. She denies ever having any symptoms consistent with optic neuritis, unilateral weakness or numbness outside of that one episode of stroke about 10 years ago, or any other symptoms typical of MS. Denies any symptoms prior to age 48 that would be consistent with MS. She endorses being an active smoker of half a pack per day x40 years, has known hypertension and hyperlipidemia, and new diagnosis of diabetes that she reports that her outside primary care office did mention earlier this week when she was there. The episode that she had yesterday she reports initially started with her waking up with numbness in the left upper and left lower extremity associated with extreme dizziness described as both lightheadedness like she is going to pass out as well as the room spinning. She reports she kept her eyes open so that she would not fall on top of her dogs when she was letting them out. This was followed by full body burning sensation, nausea, vomiting and subsequently diarrhea. She reports the entire episode lasted about 20 minutes and then resolved. Allergies Allergy/AdvReac Type Severity Reaction Status Date / Time No Known Allergies Allergy Unverified 09/09/19 11:38 Home Medications Home Medications Medication Instructions Recorded Confirmed Type aspirin 81 mg PO 09/09/19 09/09/19 History cholecalciferol (vitamin D3) 1,000 unit PO [facility] 09/09/19 09/09/19 History [Vitamin D3] conjugated estrogens [Premarin] 1.25 mg PO [facility] 09/09/19 09/09/19 History cyanocobalamin (vitamin B-12) 1,000 mcg PO [facility] 09/09/19 09/09/19 History [Vitamin B-12] fenofibrate nanocrystallized 145 mg PO [facility] 09/09/19 09/09/19 History hyoscyamine sulfate [Levbid] 0.375 mg PO [facility] 09/09/19 09/09/19 History omeprazole 40 mg PO [facility] 09/09/19 09/09/19 History simvastatin 40 mg PO 09/09/19 09/09/19 History valsartan-hydrochlorothiazide 1 tab PO [facility] 09/09/19 09/09/19 History Patient History Medical History GERD (gastroesophageal reflux disease) HTN (hypertension) Hypercholesteremia Surgical History H/O lumpectomy History of hysterectomy Hx of cholecystectomy Family History Mother Cerebral aneurysm Stroke Social History Preferred Language: Bolivian Communication Ability: Effective Resource Analyst Required: No Beliefs That Will Affect Care: None marital status: Current Living Situation: Alone current occupational status: retired Other Information That Helps Us Care for You: No Feels Safe at Home: Yes Safety Concerns: Feels Safe At This Time Smoking Status: Current every day smoker Tobacco Type: cigarettes ; Cigarettes Per Day: 10 ; Do You Dip or Chew Tobacco: No ; Second Hand Exposure: No ; Tobacco Cessation Education Requested by Patient: No Hx Alcohol Use: Yes Alcohol type: beer and wine Hx Substance Use: No Review of Systems Review of Systems: 14 point review of systems completed and negative except as in HPI. Physical Exam Physical Exam: General Exam: GEN: NAD, sitting down in examination bed. CV: RRR on monitor, no significant edema. PULM: Nonlabored respirations on room air. Neuro Exam: MS: Awake and Alert. Oriented to person, place, and date. Speech fluent and appropriate without dysarthria or paraphasic errors. Language intact including naming, comprehension, repetition. Cognition and memory grossly intact. Attention intact. No neglect. CN: Visual chamberlain full. No extinction to double simultaneous stimuli. Normal fundoscopic exam. PERRLA OU. EOMI without nystagmus. Facial sensation intact to LT. Facial muscles full and symmetric. Hearing intact to conversation. Uvula midline with symmetric palatal elevation. Shoulder shrug normal. Tongue midline. MOTOR: Normal bulk and tone. No pronator drift. BUE strength 5/5 at deltoids, biceps, triceps, wrist flexors and extensors, and finger flexors bilaterally. BLE strength 5/5 at iliopsoas, hamstrings, quadriceps, tibialis anterior, and gastrocnemius bilaterally. REFLEXES: 1+ at biceps, triceps, brachioradialis, 1+ patella, and trace Achilles bilaterally. Flexor plantar responses bilaterally. SENSORY: Intact to LT throughout, no extinction to double simultaneous stimuli. Vibration and temperature intact throughout COORDINATION: No dysmetria or ataxia on [id number] bilaterally. Normal Lila bilaterally. GAIT: Patient was able to ambulate around room without difficulty and, normal gait and armswing, negative Romberg. NIH STROKE SCALE 1A. Level of Consciousness (0-3) = 0 1B. LOC Questions (0-2) = 0 1C. LOC Commands (0-2) = 0 2. Best Horizontal Gaze (0-2) = 0 3. Visual Chamberlain (0-3) = 0 4. Facial Palsy (0-3) = 0 5. Motor Arm Right (0-4) = 0 Left (0-4) = 0 6. Motor Leg Right (0-4) = 0 Left (0-4) = 0 7. Limb Ataxia (0-2) = 0 8. Sensory (0-2) = 0 9. Best Language (0-3) = 0 10. Dysarthria (0-2) = 0 11. Extinction and Inattention (0-2) = 0 NIHSS TOTAL = 0 Results & Data Vital Signs (Past 12 Hours) Vital Signs Temp Pulse Pulse Resp BP Pulse Ox 09/10/19 07:11 36.6 C 67 18 113/69 94 09/10/19 03:58 36.7 C 72 18 107/67 95 09/10/19 00:55 36.3 C L 66 18 117/69 93 09/10/19 00:00 67 PG Care Time/CCT Total # of Minutes Spent Total Time Spent with Patient: Total time spent is greater than 50% in coordination of care (as documented) at patient's floor/unit and/or counseling patient: Coding Level of Care Code 02741 Initial Inpt Care Lvl 3 Diagnoses Dizziness R42 Diabetes E11.9 HTN (hypertension) I10 Hypercholesteremia E78.00
[2019-09-10] MEDS ORDERED: FENOFIBRATE NANOCRYSTALLIZED 145 MG TABLET PO SCH (09:00)
[2019-09-10] MEDS ORDERED: CHOLECALCIFEROL 1,000 UNITS 25 MCG TAB PO SCH (09:00)
[2019-09-10] MEDS ORDERED: CYANOCOBALAMIN 500 MCG TABLET (VITAMIN B-12) PO SCH (09:00)
[2019-09-10] MEDS ORDERED: VALSARTAN/HCTZ 160/12.5MG TAB PO SCH (09:00)
[2019-09-10] MEDS ORDERED: PANTOprazole 40 MG TAB PO SCH (09:00)
[2019-09-10] MEDS ORDERED: HYOSCYAMINE SULFATE 0.375 MG TABCR PO SCH (09:00)
[2019-09-10] MEDS ORDERED: hydroCHLOROthiazide 25 MG TAB PO SCH (09:00)
[2019-09-10] MEDS ORDERED: VALSARTAN 80 MG TAB PO SCH (09:00)
[2019-09-10] MEDS ORDERED: CLOPIDOGREL BISULFATE 300 MG TAB PO STA (11:35)
--- NOTE | 2019-09-10 12:10 | Hospitalist Progress Note ---
Date of Service September 10, 2019 Assessment & Plan (1) Dizziness: Per admitting service notes -Patient presenting from home with reports of severe dizziness and leaning to the left while ambulating; currently asymptomatic and at baseline -Patient reports she was diagnosed with TIA ~10 years ago (symptoms being facial droop at that time), also reports she was diagnosed with "dormant MS" ~ 3-4 years ago (symptoms being lightheadedness, near syncope, dizziness); not on any treatment for MS -In the ED, brain MRI showing no evidence of acute or subacute infarction; however does show scattered lacunar infarcts and moderate foci of increased T2 signal within the white matter. Diagnostic considerations include small vessel ischemic disease versus a demyelinating process -ED provider discussed case with neurology (Dr. Ioana Rashid) who recommends admission for further work-up including head and neck CTA and 09/10/2019: Brain MRI: 1. No evidence of intracranial mass 2. No evidence of acute or subacute infarction 3. Scattered lacunar infarcts 4. Moderate foci of increased T2 signal within the white matter. Diagnostic considerations include small vessel ischemic disease versus a demyelinating process 5. No evidence of pathologic enhancement to indicate an active plaque. Neurologist Dr. Rashid from [facility] physicians group consulted Episode felt to be possible TIA, rule out multiple sclerosis Recommendations: 1. changing aspirin to Plavix 75 mg p.o. daily 2. Changing simvastatin to atorvastatin 40 mg p.o. daily3. 3. discontinue estrogen supplement 4. serologic studies to rule out MS and autoimmune diseases, sent, results pending please follow-up 5. Recommend lumbar puncture-cannot be done during the weekend, will need to coordinate with neurology clinic for outpatient lumbar puncture #6 continue counseling concerning stroke education, smoking cessation, healthy diet, physical activity, weight loss (BP less than 135/85, LDL less than 70, A1c less than 7) #7 follow-up with neurology clinic in 6 to 8 weeks (2) Elevated hemoglobin A1c: A1c 6.6 Outpatient follow-up for further work-up and management (3) HTN (hypertension): Stable -Continue home dose of valsartan/HCTZ (4) Hypercholesteremia: LDL 61 Simvastatin changed to atorvastatin 40 mg daily as per neurology recommendations (5) GERD (gastroesophageal reflux disease): -Continue PPI (6) DVT prophylaxis: -SQ Lovenox Disposition Discharge to home Case discussed in detail at length with patient, all questions were answered They are understanding, agreeable, comfortable with plan of care Subjective Follow-up for dizziness Seen resting in bed, sitting up, comfortable, in good spirits States dizziness has resolved Denies focal weakness or numbness, problems with speech or swallowing, no other neurologic deficit Chest pain, palpitations, shortness of breath, nausea, vomiting No other symptoms States she is back to her baseline States She is ready and would like to be discharged today Review of Systems Review of Systems: All systems reviewed & are unremarkable except as noted in HPI & below Physical Exam Physical Exam: General- oriented x 3, not in distress, speaks in sentences with no effort or accessory muscle use Head- atraumatic Eyes- PERRL, EOMI, anicteric ENT- oropharynx clear Neck- supple, no JVD, no adenopathy, no thyromegaly; carotids +2/2, no bruits appreciated Lungs- clear to auscultation bilaterally, no rales/wheezes Heart- normal rate, regular rhythm; no murmur, no gallop, no rub appreciated Abdomen- normal bowel sounds, nondistended, soft, nontender, no masses or hepatosplenomegaly Extremities- no pretibial edema, no calf tenderness; peripheral pulses intact Neuro- alert, oriented x 3; CN 2-12 grossly intact; motor 5/5 bilaterally;sensation 100% on all extremities; no other gross focal neurologic deficits Skin- warm & dry Results & Data ([facility]) Vital Signs (Past 12 Hours) Vital Signs Temp Pulse Resp BP Pulse Ox 09/10/19 07:11 36.6 C 67 18 113/69 94 09/10/19 03:58 36.7 C 72 18 107/67 95 09/10/19 00:55 36.3 C L 66 18 117/69 93
[2019-09-10 12:18] LABS: Prothrombin Time 10.1 Seconds (9.0-12.0)
[2019-09-10 12:36] LABS: C Reactive Protein 0.33 mg/dl (0-0.29)
[2019-09-10 13:03] LABS: Lyme Ab IgG w/WB Rflx Negative (Negative); Lyme Ab IgM w/WB Rflx Negative (Negative)
[2019-09-10] MEDS ORDERED: STROKE PATIENT DISCHARGE STA (17:48)
--- NOTE | 2019-09-10 18:15 | Pharmacy Report ---
Pharmacist Stroke Counseling - Date of Service September 10, 2019 - Scope: Pharmacy has been consulted to provide medication discharge counseling for this patient admitted with [ischemic stroke] [hemorrhagic stroke] [transient ischemic attack] as per the Pharmacist Discharge Counseling for Stroke Patients Prot ocol. - Medications on Discharge: Home Medications Medication Instructions Recorded Confirmed cholecalciferol (vitamin D3) 1,000 unit PO [facility] 09/09/19 09/09/19 [Vitamin D3] cyanocobalamin (vitamin B-12) 1,000 mcg PO [facility] 09/09/19 09/09/19 [Vitamin B-12] fenofibrate nanocrystallized 145 mg PO [facility] 09/09/19 09/09/19 hyoscyamine sulfate [Levbid] 0.375 mg PO [facility] 09/09/19 09/09/19 omeprazole 40 mg PO [facility] 09/09/19 09/09/19 valsartan-hydrochlorothiazide 1 tab PO [facility] 09/09/19 09/09/19 New Rx's Medication Instructions Recorded atorvastatin 40 mg PO QAM 30 Days #30 tab 09/10/19 clopidogrel 75 mg PO QAM 30 Days #30 tab 09/10/19 - Action: The above medications, specifically ones for stroke treatment/prophylaxis, have been reviewed in detail with the patient and/or patient employee representative(s) prior to discharge. This includes indication, common adverse reactions, drug interactions, and medication administration. Medication counseling has been employed using the teach-back method to ensure understanding. - Outcome: When Pharmacy called up to the unit to discuss counseling, we were informed that the patient had already left the hospital. Counseling not completed. Thank you for allowing pharmacy to be involved in the care of this patient. Please call [phone] with any additional questions
--- NOTE | 2019-09-10 18:39 | Discharge Summary ---
Date of Service September 10, 2019 Admission HPI Per Admitting Provider 63 year old female who presents to the ED with dizziness. Patient reports she woke up this morning to let her dog out and when she got out of bed, she had a feeling of lightheadedness and dizziness. She reports that when she walking she was leaning to left. She then went back to bed and when she woke up, the dizziness and lightheadedness was much worse. She had associated vomiting and diarrhea. She also felt very flushed. Reports symptoms were worse when she turned her head. She denies hematemesis and coffee-ground emesis. No prior bleeding per rectum or dark tarry stools. Symptoms lasted for about 1 hour and then resolved on their own. Patient then presented to the ED for further evaluation. She denies unilateral weakness, numbness, tingling. No facial droop, slurred speech, difficulty speaking or understanding. Denies headache and blurred vision. Has some associated shortness of breath but denies any chest pain. No syncopal event. Denies abdominal pain. No other recent illness, fevers, chills. Denies any urinary symptoms. In the ED, brain MRI was obtained showing No evidence of acute or subacute infarction, Scattered lacunar infarcts, and Moderate foci of increased T2 signal within the white matter. Diagnostic considerations include small vessel ischemic disease versus a demyelinating process. Labs are unremarkable. Patient has remained hemodynamically stable. ED provider consulted with neurology who recommended admission for further work-up. Admission Exam Per Admitting Provider Constitutional: WD/WN, vitals as above Eyes: PERRL, conjunctivae normal, anicteric sclerae ENMT: external ear and nose normal, oropharynx normal Respiratory: normal respiratory effort, lungs clear to auscultation Cardiovascular: Rate/Rhythm: regular rate and regular rhythm Vessels: normal peripheral pulses Extremities: no edema Gastrointestinal (Abdomen): normal bowel sounds, soft, nontender, no hepat osplenomegaly Musculoskeletal: no cyanosis or clubbing, extremities motor strength 5/5 Skin: no rashes, warm and dry Neurologic: PERRL, EOMI, accommodation nl, no face palsy, no dysarthria moves all extremities and awake; no focal motor deficits Motor/Sensory: no pronator drift Cranial Nerves: tongue midline Coordination: normal [id number] test and normal [id number] test Psychiatric: A+Ox3, euthymic affect Principal Diagnosis Dizziness, possible TIA, rule out multiple sclerosis Discharge Exam General- oriented x 3, not in distress, speaks in sentences with no effort or accessory muscle use Head- atraumatic Eyes- PERRL, EOMI, anicteric ENT- oropharynx clear Neck- supple, no JVD, no adenopathy, no thyromegaly; carotids +2/2, no bruits appreciated Lungs- clear to auscultation bilaterally, no rales/wheezes Heart- normal rate, regular rhythm; no murmur, no gallop, no rub appreciated Abdomen- normal bowel sounds, nondistended, soft, nontender, no masses or hepatosplenomegaly Extremities- no pretibial edema, no calf tenderness; peripheral pulses intact Neuro- alert, oriented x 3; CN 2-12 grossly intact; motor 5/5 bilaterally;sensation 100% on all extremities; no other gross focal neurologic deficits Skin- warm & dry Discharge Data Allergies Allergy/AdvReac Type Severity Reaction Status Date / Time No Known Allergies Allergy Unverified 09/09/19 11:38 Consultations 09/09/19 13:54 ED Decision to Admit Stat 09/09/19 15:43 Consult Case Management - Discharge Planning Routine Consult Neurology Routine Ordered Studies 09/09/19 09:46 MRFINDINGS: Sagittal T1, axial diffusion, proton density and T2 weighted axial, coronal FLAIR, and pre and post axial T1-weighted images were acquired. These were supplemented with post gadolinium coronal T1 weighted images. No intra or extra-axial mass lesions are visualized. Axial diffusion-weighted images reveal no evidence of acute or subacute infarction. There is no evidence of ventricular dilatation. Proton density T2-weighted and FLAIR images reveal multiple foci of abnormal increased T2 signal within the white matter. A few small periventricular lacunar infarcts are also visualized. There is also a pontine lacunar infarct. Diagnostic considerations include small vessel ischemic disease versus a demy elinating process. There are no abnormal flow voids. There is no evidence of pathologic enhancement. IMPRESSION: 1. No evidence of intracranial mass 2. No evidence of acute or subacute infarction 3. Scattered lacunar infarcts 4. Moderate foci of increased T2 signal within the white matter. Diagnostic considerations include small vessel ischemic disease versus a demyelinating process 5. No evidence of pathologic enhancement to indicate an active plaque. brain MS wo/w con Stat 09/09/19 14:32 CT angio head w con Routine CT angio neck with con Routine IMPRESSION: 1. There is no hemorrhage, mass effect, or evidence of acute territorial ischemia by CT criteria noting angiographic phase technique. 2. Unremarkable CT angiogram of the brain. 3. Unremarkable CT angiogram of the neck. 4. Emphysema. Echocardiogram: No intra-atrial shunt Interatrial septum intact with no evidence of atrial septal defect Left ventricular systolic function normal Ejection fraction 65 to 70% Right ventricular systolic function is normal Left atrial size is normal Right atrial size is normal No significant valvular pathology Hospital Course (1) Dizziness: Per admitting service notes -Patient presenting from home with reports of severe dizziness and leaning to the left while ambulating; currently asymptomatic and at baseline -Patient reports she was diagnosed with TIA ~10 years ago (symptoms being facial droop at that time), also reports she was diagnosed with "dormant MS" ~ 3-4 years ago (symptoms being lightheadedness, near syncope, dizziness); not on any treatment for MS -In the ED, brain MRI showing no evidence of acute or subacute infarction; however does show scattered lacunar infarcts and moderate foci of increased T2 signal within the white matter. Diagnostic considerations include small vessel ischemic disease versus a demyelinating process -ED provider discussed case with neurology (Dr. Ioana Rashid) who rec [facility] admission for further work-up including head and neck CTA and 09/10/2019: Brain MRI: 1. No evidence of intracranial mass 2. No evidence of acute or subacute infarction 3. Scattered lacunar infarcts 4. Moderate foci of increased T2 signal within the white matter. Diagnostic considerations include small vessel ischemic disease versus a demyelinating process 5. No evidence of pathologic enhancement to indicate an active plaque. Neurologist Dr. Rashid from [facility] consulted Episode felt to be possible TIA, rule out multiple sclerosis Recommendations: 1. changing aspirin to Plavix 75 mg p.o. daily 2. Changing simvastatin to atorvastatin 40 mg p.o. daily 3. discontinue estrogen supplement 4. serologic studies to rule out MS and autoimmune diseases, sent, results pending please follow-up 5. Recommend lumbar puncture-cannot be done during the weekend, will need to coordinate with neurology clinic for outpatient lumbar puncture 6. continue counseling concerning stroke education, smoking cessation, healthy diet, physical activity, weight loss (BP less than 135/85, LDL less than 70, A1c less than 7) 7. follow-up with neurology clinic in 6 to 8 weeks (2) Elevated hemoglobin A1c: A1c 6.6 Outpatient follow-up for further work-up and management (3) HTN (hypertension): Stable -Continue home dose of valsartan/HCTZ (4) Hypercholesteremia: LDL 61 Simvastatin changed to atorvastatin 40 mg daily as per neurology recommendations (5) GERD (gastroesophageal reflux disease): -Continue PPI (6) DVT prophylaxis: -SQ Lovenox Disposition Discharge to home Case discussed in detail at length with patient and her family, all questions were answered They are understanding, agreeable, comfortable with plan of care Total Time Total Time Spent Total Time Spent (In Minutes): 55 minutes Discharge Plan Discharge Items Patient Disposition: Home - Self-Care Reason For Visit: DIZZY,SWEATS,SICK,VOMITING Discharge Diagnosis: Dizziness, possible transient ischemic attack, rule out multiple sclerosis Activity: As commented below Activity Comment: Resume activity gradually as tolerated Lifting: Wait until after follow-up appointment Exercise/Sports: Wait until after follow-up appointment Driving/Machine Use: No driving until evaluated and allowed by primary care physician Non-emergency contact: Primary Care Provider Call non-emergency contact if: you have any medication questions and you have a fever Follow-up/Referrals: Ioana Rashid MD [Physician] - Maria Eugenia Augustin CRNP [Primary Care Provider] - Diet: Carb Consistent or DM2 and Heart Healthy Addtl Attending Provider Instructions: Please follow-up with primary care physician next week. The clinic will be calling for appointment. Please call the neurology clinic, Dr. Rashid, on Thursday to schedule for lumbar puncture and for follow-up appointment with Dr. Rashid in 6 weeks. Please review new medication list and follow instructions carefully: Your aspirin is being changed to Plavix. Your simvastatin is being changed to atorvastatin. Please discontinue estrogen. Risk Factors for Stroke: You can reduce your chances of stroke by working with your medical provider to adopt a healthy lifestyle. Some specific ways to lower your chance of stroke are: If you are a smoker, now is the time to stop smoking cigarettes If you are diabetic, improve the control of your blood sugars Avoid excessive amounts of alcohol Control high blood pressure Lose weight if you are overweight Be sure to lead an active lifestyle Eat a healthy diet low in salt, cholesterol and fat You should know about other risk factors for stroke that you are unable to control. These include: Age 55 years or older Male gender Certain racial groups: , or / Family History of Stroke, Mini stroke or Heart Attack Sickle Cell Disease Follow Up: It is important for you to keep your follow up appointments with your medical provider. Who to Call and When: Medical Emergencies: Call 911 immediately if you experience any of the following warning signs and symptoms of Stroke: Sudden numbness or weakness of the face, arm or leg, especially on one side of the body Sudden confusion, trouble speaking or understanding Sudden trouble seeing in one or both eyes Sudden trouble walking, dizziness, loss of balance or coordination Sudden severe headache with no cause Do not delay calling 911 if you experience any warning signs or symptoms of a stroke. Delay in seeking medical attention may affect what treatments can be given to you. Pending Studies at Discharge: Yes Studies:: LUMBAR PUNCTURE, RESULTS OF BLOOD WORK DRAWN IN THE HOSPITAL DURING ADMISSION Stand-Alone Forms: My [facility], Smoking Cessation Medications and DC Order Prescriptions: New clopidogrel 75 mg Tablet 75 mg PO QAM 30 Days Qty: 30 RF: 2 atorvastatin 40 mg Tablet 40 mg PO QAM 30 Days Qty: 30 RF: 2 Continued omeprazole 40 mg capsule,delayed release(DR/EC) 40 mg PO QAM RF: 0 fenofibrate nanocrystallized 145 mg tablet 145 mg PO QAM RF: 0 valsartan-hydrochlorothiazide 160-12.5 mg Tablet 1 tab PO QAM RF: 0 cyanocobalamin (vitamin B-12) [Vitamin B-12] 1,000 mcg Tablet 1,000 mcg PO QAM RF: 0 hyoscyamine sulfate [Levbid] 0.375 mg Tablet Extended Release 12 Hr 0.375 mg PO QAM RF: 0 cholecalciferol (vitamin D3) [Vitamin D3] 25 mcg (1,000 unit) Tablet 1,000 unit PO QAM RF: 0 Discontinued simvastatin 40 mg tablet 40 mg PO HS RF: 0 aspirin 81 mg Tablet,Delayed Release (Dr/Ec) 81 mg PO HS RF: 0 Premarin 1.25 mg Tablet 1.25 mg PO QAM RF: 0 Discharge Orders: Discharge Order (Routine); Ordered 09/10/19 Ordered By: Evan A. Panlilio Krames/Other Patient Handouts: Diabetes Type 2 Coping, Diabetes Healthy Meals, Diabetes Meal Planning, A1C Admission Data Admit Date/Time: 09/09/19 14:37 Attending Provider: Evan Avitia Admit Provider: Adolph Eason Primary Care Provider: Maria Eugenia Augustin Other Providers: Adolph Eason ; Ioana Rashid Other Interventions: Discharge Summary Assessment (RN) Last Done: 09/10/19 17:49 DC Date/Time DO NOT enter until pt leaves facility: 09/10/19 18:20
[2019-09-11] MEDS ORDERED: ATORVASTATIN 40 MG TAB PO SCH (09:00)
[2019-09-11] MEDS ORDERED: CLOPIDOGREL BISULFATE 75 MG TAB PO SCH (09:00)
[2019-09-13 23:56] LABS: Rapid Plasma Reagin Nonreactive (Nonreactive)
[2019-09-14 11:15] LABS: Quantiferon Mitogen-NIL >10.00 IU/mL; Quantiferon NIL 0.04 IU/mL; Quantiferon TB Gold Plus NEGATIVE (NEGATIVE); Quantiferon TB1-NIL 0.05 IU/mL; Quantiferon TB2-NIL 0.03 IU/mL
[2019-09-15 06:12] LABS: ANCA Screen Negative (Negative); Angiotensin Converting Enzyme 21 U/L (9-67); Anti Nuclear Antibody Screen POSITIVE (NEGATIVE); Copper, Serum 115 mcg/dL (70-175)
[2019-09-15 09:46] LABS: ANA Pattern Cytoplasmic; ANA Titer 1:40 titer
== END 2019-09-10 18:20 | disposition home or self-care (01) | DRG 69 ==
LOC: ED 09:10 → 2S 14:37 → SUATTDRO 14:37 → 2S 14:44